=== PATIENT | female | born 1980 | race Caucasian/White ===

== ENCOUNTER 2017-04-18 23:52 | Emergency (ER) | payer OTHER ==
[2017-04-19 00:07] VITALS: BP 126/84
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
[2017-04-19] MEDS ORDERED: ACETAMINOPHEN 325 MG TABLET PO STA (00:37)
[2017-04-19] MEDS ORDERED: IBUPROFEN 600 MG TABLET PO STA (00:37)
[2017-04-19] MEDS ORDERED: IBUPROFEN 600 MG TABLET PO ONE (00:49)
[2017-04-19] MEDS ORDERED: ACETAMINOPHEN 325 MG TABLET PO ONE (00:49)
--- NOTE | 2017-04-19 01:19 | XRAY Preliminary Report ---
Exam: XR Nasal Bones IMPRESSION: 1. No fracture seen. [facility] SITE ID: [id number]
--- NOTE | 2017-04-19 01:20 | XRAY Preliminary Report ---
Exam: XR Wrist 4 View RT IMPRESSION: 1. No acute fracture or dislocation seen. [facility] SITE ID: [id number]
--- NOTE | 2017-04-19 01:21 | XRAY Report ---
EXAM: NASAL BONES RADIOGRAPHY EXAM DATE: 04/19/2017 01:07 AM. CLINICAL HISTORY: Nasal pain and swelling after injury. COMPARISONS: None. TECHNIQUE: 3 views. FINDINGS: Bones: No fracture seen. Sinuses: No fluid levels are noted. Other: None. IMPRESSION: 1. No fracture seen. [facility] Referring Provider Line: [phone] SITE ID: [id number]
--- NOTE | 2017-04-19 01:23 | XRAY Report ---
EXAM: RIGHT WRIST RADIOGRAPHY EXAM DATE: 04/19/2017 01:06 AM. CLINICAL HISTORY: Pain after injury. COMPARISON: None. TECHNIQUE: 4 views. FINDINGS: Bones: No acute fracture seen. Joints: No dislocation. Joint spaces appear intact. Soft Tissues: Mild soft tissue swelling. IMPRESSION: 1. No acute fracture or dislocation seen. [facility] Referring Provider Line: [phone] SITE ID: [id number]
== END 2017-04-19 01:51 | disposition home or self-care (01) ==
LOC: ED 23:52
DX: S63.501A Unspecified sprain of right wrist, initial encounter (principal); S00.33XA Contusion of nose, initial encounter; Y04.0XXA Assault by unarmed brawl or fight, initial encounter
CPT/HCPCS: 70160; 73110; 99283; A9270

== ENCOUNTER 2018-03-09 12:16 | Emergency (ER) | payer OTHER ==
[2018-03-09 12:27] VITALS: BP 114/69
--- NOTE | 2018-03-09 13:52 | ED Physician Documentation ---
PD HPI UPPER EXT INJURY - Stated complaint Stated Complaint: RT HAND INJURY - Chief complaint Chief Complaint: Ext Problem - History of Present Illness Location: Right, Hand Type of injury: Twist Where injury occurred: Work Timing - onset: How many days ago (3) Timing - duration: Days (3) Timing - details: Abrupt onset, Still present Improved by: Rest, Immobilization Worsened by: Moving, Palpating Associated symptoms: Swelling. 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 She had her right hand under the gait belt appropriately and the patient began to waver and this twisted the patient' s hand and she is complaining of some pain between the first and second digits on the body of the hand. She went home and rested over the weekend did not feel her hand hurt that bad but then when she got work she realized that this hurts to move anything. She is not able to perform her usual duties with a gait belt. Review of Systems Constitutional: denies: Fever, Chills Eyes: denies: Decreased vision Ears: denies: Ear pain Nose: denies: Congestion Throat: denies: Sore throat Respiratory: denies: Cough GI: denies: Vomiting : denies: Dysuria Skin: denies: Rash Musculoskeletal: reports: Extremity pain. denies: Neck pain, Back pain Neurologic: denies: Generalized weakness, Focal weakness, Numbness PD PAST MEDICAL HISTORY - Past Medical History Past Medical History: No - Past Surgical History Past Surgical History: Yes /HAT FORMER: section, Other - Present Medications Home Medications: Ambulatory Orders Medication Instructions Recorded Confirmed Ibuprofen 400 mg PO TID #25 tablet 04/19/17 - Allergies Allergies/Adverse Reactions: Allergies Allergy/AdvReac Type Severity Reaction Status Date / Time Penicillins Allergy Edema Verified 04/19/17 00:04 - Social History Does the pt smoke?: No Smoking Status: Never smoker Does the pt drink ETOH?: No Does the pt have substance abuse?: No - Immunizations Immunizations are current?: Yes PD ED PE NORMAL - Vitals Vital signs reviewed: Yes (normal ) - General General: Alert and oriented X 3, No acute distress, Well developed/nourished - HEENT HEENT: Atraumatic, PERRL - Respiratory Respiratory: No respiratory distress - Derm Derm: Normal color, Warm and dry, No rash - Extremities Extremities: No deformity, No edema, Other (There is tenderness to the lumbricoidals between #2 and #3. distal n/v is intact. ) - Neuro Neuro: No motor deficit, No sensory deficit Eye Opening: Spontaneous Motor: Obeys Commands Verbal: Oriented GCS Score: 15 - Psych Psych: Normal mood, Normal affect Results - Vitals Vitals: Vital Signs - 24 hr 03/09/18 12:22 Temperature 36.5 C Heart Rate 70 Respiratory 16 Rate Blood Pressure 114/69 O2 Saturation 100 Oxygen O2 Source Room air - Rads (name of study) hand Radiology: Prelim report reviewed (Impression: Normal hand radiography.), EMP read indepedently, See rad report Procedures - Splint (location) right hand Splint applied by: Tech Type of splint: Fiberglass, Volar cock up Other: Patient tolerated well, No complications, Neurovascular intact PD MEDICAL DECISION MAKING - ED course Complexity details: reviewed results, re-evaluated patient, considered differential, d/w patient ED course: 37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 She is placed into a splint for comfort. - Sepsis Event Vital Signs: Vital Signs - 24 hr 03/09/18 12:22 Temperature 36.5 C Heart Rate 70 Respiratory 16 Rate Blood Pressure 114/69 O2 Saturation 100 Oxygen O2 Source Room air Departure - Departure Disposition: 01 Home, Self Care Clinical Impression: Sprain of right hand Qualifiers: Encounter type: initial encounter Qualified Code(s): S63.91XA - Sprain of unspecified part of right wrist and hand, initial encounter Condition: Stable Instructions: ED Sprain Hand Follow-Up: [facility] [Provider Group] Forms: Activity restrictions Discharge Date/Time: 03/09/18 14:29
--- NOTE | 2018-03-09 14:16 | XRAY Report ---
Procedure Date: 03/09/2018 Accession Number: [id number] / [id number] Procedure: XR - Hand 3 View RT CPT Code: FULL RESULT: EXAM: RIGHT HAND RADIOGRAPHY EXAM DATE: 03/09/2018 01:55 PM. CLINICAL HISTORY: Twisting injury 3 days ago, pain between the second and third metacarpals. COMPARISON: Right wrist 04/19/2017. TECHNIQUE: 3 views. FINDINGS: Bones: Normal. No fractures or bone lesions. Joints: Normal. No subluxations. Soft Tissues: Normal. No soft tissue swelling. IMPRESSION: Normal hand radiography. [facility]
== END 2018-03-09 14:29 | disposition home or self-care (01) ==
LOC: ED 12:16
DX: S63.91XA Sprain of unspecified part of right wrist and hand, initial encounter (principal); X50.9XXA Other and unspecified overexertion or strenuous movements or postures, initial encounter; Y93.F2 Activity, caregiving, lifting; Y92.129 Unspecified place in nursing home as the place of occurrence of the external cause; Y99.0 Civilian activity done for income or pay
CPT/HCPCS: 1040M; 29125; 73130; 99282; 99283